=== PATIENT | female | born 2000 | race Caucasian/White ===

== ENCOUNTER 2022-01-01 10:19 | Emergency (ER) | payer OTHER, SELFPAY ==
[2022-01-01 10:25] VITALS: BP 103/63; PULSE 79; RESP 16; TEMP 36.9; O2SAT 100
--- NOTE | 2022-01-01 10:34 | ED.URI ---
HPI - URI/Sore Throat General Chief Complaint: Upper Respiratory Infection Stated Complaint: Sore Throat/Cough Time Seen by Provider: 01/01/22 10:35 Source: patient, RN notes reviewed and old records reviewed Mode of arrival: ambulatory Limitations: no limitations History of Present Illness HPI Narrative: 21 year old female who presents to [facility] care with complaints of body aches,sinus congestion, headache, cough, sore throat since Friday with 2 days of fevers, chills, and sweats. Patient reports that she has been taking DayQuil and NyQuil some cough medication and also some Tylenol and Ibuprofen for her symptoms. MD elicited complaint: fever, cough and sore throat Related Data Home Medications Medication Instructions Recorded Confirmed [id number]-acetaminophen ml 01/01/22 [NyQuil] Allergies Allergy/AdvReac Type Severity Reaction Status Date / Time No Known Allergies Allergy Unverified 11/21/17 11:38 Review of Systems Review of Systems: CONSTITUTIONAL:Positive for fevers, chills, or sweats. EYES: Denies visual changes, redness, or discharge. ENT:Positive for rhinorrhea, congestion, sore throat, no otalgia. CARDIOVASCULAR: Denies chest pain, palpitations, or edema. RESPIRATORY: Positive for cough denies dyspnea. GASTROINTESTINAL: Denies abdominal pain, nausea, vomiting, or diarrhea. GENITOURINARY: Denies dysuria or hematuria. SKIN: Denies rash or itching. MUSCULOSKELETAL: Denies back pain, joint pain,positive for body aches. NEUROLOGIC: Positive for headache,no numbness, or weakness. PSYCHIATRIC: Denies anxiety or depression. All systems reviewed & are unremarkable except as noted in HPI and below [facility] Past Medical History Medical History (Updated 01/01/22 @ 23:26 by Felicia Carmona NP) ADHD (attention deficit hyperactivity disorder) Fracture of wrist surgery to set No active medical problems Social History Social History (Updated 01/01/22 @ 23:26 by Felicia Carmona NP) Smoking status: Never smoker Alcohol intake: never Substance use type: does not use Living arrangements: with family Gender identity (if verbalized by the patient): Female Comments At time of signature, agree with nursing past medical, surgical, social and family history. There is no relevant family history pertinent to the presenting complaint Exam Narrative: GENERAL: Ill-appearing, well-nourished, and in no acute distress. HEAD: Normocephalic, atraumatic. EYES: PERRLA and EOMI. ENT: Nares red with clear rhinorrhea no epistaxis. Mucous membranes moist.TM;s normal with good light reflex, throat red with no lesions or tonsil enlargement NECK: Supple.some lymphadenopathy CHEST: Clear to auscultation. No respiratory distress.cough, [id number] on room air HEART: Regular rate and rhythm. No murmur heard. Normal peripheral pulses. ABDOMEN: Soft, nontender, nondistended, normal active bowel sounds. EXTREMITIES: Normal range of motion. No edema. SKIN: Warm, dry, no rash. NEURO: No focal deficits. Alert and oriented x3. Course Course Level of Care: Express Care Visit Vital Signs Vital signs: Vital Signs Temperature 36.9 C 01/01/22 10:25 Pulse Rate 79 01/01/22 10:25 Respiratory Rate 16 01/01/22 10:25 Blood Pressure 103/63 01/01/22 10:25 Pulse Oximetry 100 01/01/22 10:25 Temperature 36.9 C 01/01/22 10:25 Pulse Rate 79 01/01/22 10:25 Respiratory Rate 16 01/01/22 10:25 Blood Pressure 103/63 01/01/22 10:25 Pulse Oximetry 100 01/01/22 10:25 MDM - URI/Sore Throat Differential Diagnosis Differential diagnosis: Likely upper respiratory infection, sinusitis, viral infection, influenza and pharyngitis Medical Records Attestation: I reviewed the patient's medical records. Lab Data Attestation: I reviewed the patient's lab results. Lab results narrative: influenza A positive, influenza B negative, strep screen negative Labs: Influenza A Screen Positive
== END 2022-01-01 11:04 | disposition home or self-care (01) ==
PROVIDERS: Emergency Provider Registered Nurse
DX: J10.1 Influenza due to other identified influenza virus with other respiratory manifestations (principal)
CPT/HCPCS: 87081; 87804; 87880; 99203; G0463

== ENCOUNTER 2022-12-23 14:01 | Emergency (ER) | payer OTHER, MEDICAID, SELFPAY ==
[2022-12-23 14:11] VITALS: BP 122/71; PULSE 66; RESP 18; TEMP 37.2; O2SAT 100
--- NOTE | 2022-12-23 14:16 | ED.GENADULT ---
HPI - General Adult General Chief complaint: Nausea/Vomiting/Diarrhea Stated complaint: Diarrhea/Headache Source: patient and RN notes reviewed History of Present Illness HPI narrative: 22-year-old male presents urgent care with sister at side. Patient states she has been having diarrhea since last night. Patient states she notices a headache. Patient denies any vomiting, abdominal pain fevers, chills, chest pain shortness of breath. Patient states no one in the house has been sick. Patient has not taken any medication for symptoms. Patient requesting work note for tonight. Some parts of this dictation were generated by voice recognition software and may contain typographical and/or grammatical inaccuracies. Related Data Home Medications Medication Instructions Recorded Confirmed No Home Medications 12/23/22 12/23/22 Allergies Allergy/AdvReac Type Severity Reaction Status Date / Time No Known Allergies Allergy Verified 12/23/22 14:20 Review of Systems Review of Systems: Pertinent positives and pertinent negatives per HPI. [facility] Past Medical History Medical History (Updated 12/23/22 @ 14:26 by Sharron Sharma APRN) ADHD (attention deficit hyperactivity disorder) Fracture of wrist surgery to set No active medical problems Social History Social History (Updated 01/01/22 @ 23:26 by Felicia Carmona NP) Smoking status: Never smoker Alcohol intake: never Substance use type: does not use Living arrangements: with family Gender identity (if verbalized by the patient): Female Comments At the time of my signature, I reviewed and agree with the nursing past medical, surgical, social, and family history. There is no relevant family history pertinent to the patient complaint. Exam Narrative: GENERAL: This is a well-nourished, well-developed patient, in no apparent distress. HEAD: normocephalic, atraumatic. EYES: Sclera clear/white. Vision is grossly intact. EARS: External ears normal, auditory canals clear and without drainage. Hearing grossly intact. NOSE: External nose normal with no obvious nasal discharge, nares without redness, no rhinorrhea. THROAT: Mucous membranes moist, posterior pharynx clear. NECK: Neck supple, non-tender without lymphadenopathy, masses or thyromegaly. CARDIOVASCULAR: Regular rate and rhythm without murmurs, gallops, or rubs. RESPIRATORY: Clear to auscultation. Breath sounds equal bilaterally. No wheezes, rales, or rhonchi. GASTROINTESTINAL: Abdomen soft, non-tender, nondistended. Bowel sounds are active. No hepato-splenomegaly, or palpable masses. No guarding. SKIN: warm, intact with no suspicious lesions or rash, good texture and turgor. NEURO: awake, alert, and oriented to person, place and time. There were no obvious focal neurologic abnormalities. Course Course Level of Care: Express Care Visit Vital Signs Vital signs: Vital Signs Temperature 98.9 F 12/23/22 14:11 Pulse Rate 66 12/23/22 14:11 Respiratory Rate 18 12/23/22 14:11 Blood Pressure 122/71 12/23/22 14:11 Pulse Oximetry 100 12/23/22 14:11 Oxygen Delivery Room Air 12/23/22 14:11 Temperature 98.9 F 12/23/22 14:11 Pulse Rate 66 12/23/22 14:11 Respiratory Rate 18 12/23/22 14:11 Blood Pressure 122/71 12/23/22 14:11 Pulse Oximetry 100 12/23/22 14:11 Oxygen Delivery Room Air 12/23/22 14:11 Reviewed Medical Decision Making MDM Narrative Medical decision making narrative: You've been diagnosed with a viral illness that would not require antibiotics at this time. You may take Imodium for diarrhea. If you would like to eat food, you should follow the BRAT diet (bananas, rice, applesauce, and toast, or things of the like). If you develop any new or worsening symptoms, you should go to the emergency dept without hesitation. Follow up with your market editor in 2-5 days. Differential Diagnosis Differential Diagnosis: Gastroenteritis, food poisoning, dehydratio
== END 2022-12-23 14:28 | disposition home or self-care (01) ==
PROVIDERS: Emergency Provider Nurse Practitioner Family
DX: K52.9 Noninfective gastroenteritis and colitis, unspecified (principal)
CPT/HCPCS: 99213; G0463